=== PATIENT | male | born 2005 | race Caucasian/White ===

== ENCOUNTER 2025-10-10 06:26 | Day surgery (SDC) | payer BC ==
[2025-10-09 09:34] VITALS: BMI 25.0
[2025-10-10] MEDS ORDERED: AFRIN NASAL MIST 15 ML BOT ONE (07:47)
[2025-10-10] MEDS ORDERED: Bacitracin 1 PK ONE (07:48)
[2025-10-10] MEDS ORDERED: Lidocaine 1% w/Epinephrine 1:200K 30 ML VIAL ONE (07:49)
[2025-10-10] MEDS ORDERED: Lidocaine 4% PF 5 ML AMP ONE (08:00)
[2025-10-10] MEDS ORDERED: PROPOFOL 20 ML ONE (08:00)
[2025-10-10] MEDS ORDERED: Ondansetron PF 4 MG/2 ML Vial ONE (08:05)
[2025-10-10] MEDS ORDERED: Lidocaine 1% PF 5 ML VIAL ONE (08:05)
[2025-10-10] MEDS ORDERED: Rocuronium Bromide 10 MG/ML (10ML VIAL) ONE (08:05)
[2025-10-10] MEDS ORDERED: Oxymetazoline HCl 0.05% (15 ML) ONE (08:12)
[2025-10-10] MEDS ORDERED: SUGAMMADEX SODIUM 200 MG/2 ML VIAL ONE (08:35)
[2025-10-10] MEDS ORDERED: HYDROcodone/Acetaminophen 5/325 mg Tablet ONE (09:45)
== END 2025-10-10 10:05 | disposition home or self-care (01) ==
LOC: CSHSDC 06:26
PROVIDERS: ATTEND Otolaryngology Plastic Surgery within the Head & Neck
PROC: 09BU8ZZ Excision of Right Ethmoid Sinus, Via Natural or Artificial Opening Endoscopic (ICD-10-PCS; principal; 2025-10-10)
PROC: 09BS8ZZ Excision of Right Frontal Sinus, Via Natural or Artificial Opening Endoscopic (ICD-10-PCS; principal; 2025-10-10)
PROC: 09BR8ZZ Excision of Left Maxillary Sinus, Via Natural or Artificial Opening Endoscopic (ICD-10-PCS; principal; 2025-10-10)
PROC: 09BW8ZZ Excision of Right Sphenoid Sinus, Via Natural or Artificial Opening Endoscopic (ICD-10-PCS; principal; 2025-10-10)
PROC: 09BV8ZZ Excision of Left Ethmoid Sinus, Via Natural or Artificial Opening Endoscopic (ICD-10-PCS; principal; 2025-10-10)
PROC: 09BT8ZZ Excision of Left Frontal Sinus, Via Natural or Artificial Opening Endoscopic (ICD-10-PCS; principal; 2025-10-10)
PROC: 09BQ8ZZ Excision of Right Maxillary Sinus, Via Natural or Artificial Opening Endoscopic (ICD-10-PCS; principal; 2025-10-10)
PROC: 09BX8ZZ Excision of Left Sphenoid Sinus, Via Natural or Artificial Opening Endoscopic (ICD-10-PCS; principal; 2025-10-10)
DX: J32.4 Chronic pansinusitis (principal); J34.2 Deviated nasal septum; J34.3 Hypertrophy of nasal turbinates; J33.0 Polyp of nasal cavity
CPT/HCPCS: J1100; J2003; J2405; J2704; J3010